=== PATIENT | male | born 1990 | race Caucasian/White ===

== ENCOUNTER 2017-05-01 11:20 | Emergency (ER) | payer SELFPAY ==
[2017-05-01 11:29] VITALS: BP 161/99
--- NOTE | 2017-06-07 22:27 | ED ---
Throat Pain/Nasal Congestion - HPI Summary HPI Summary: Pt here w B/L eye irritation. Not sure but thinks he may still have his contact lenses in place. Reports multiple attempts to remove w/o success. Vision is blurred unless he wears is glasses. Denies headache, fever, chills, neck pain. - History of Current Complaint Chief Complaint: EDEyeProblem Time Seen by Provider: 05/01/17 14:02 Hx Obtained From: Patient - Allergies/Home Medications Allergies/Adverse Reactions: Allergies Allergy/AdvReac Type Severity Reaction Status Date / Time No Known Allergies Allergy Verified 05/01/17 11:26 PMH/Surg Hx/FS Hx/Imm Hx Previously Healthy: Yes Endocrine/Hematology History: Denies: Autoimmune Disease - Immunization History Immunizations Up to Date: Yes Infectious Disease History: No Infectious Disease History: Denies: Hx of Known/Suspected MRSA, Traveled Outside the [place] in Last 30 Days - Social History Occupation: Student Lives: With Family Alcohol Use: None Hx Substance Use: No Substance Use Type: Reports: None Hx Tobacco Use: Yes Smoking Status (MU): Current Every Day Smoker Review of Systems Constitutional: Negative Negative: Fever, Chills, Fatigue Positive: Blurred Vision - see HPI, Erythema. Negative: Photophobia, Diplopia, Drainage ENT: Negative Cardiovascular: Negative Respiratory: Negative Gastrointestinal: Negative Negative: Vomiting, Nausea Positive: no symptoms reported Musculoskeletal: Negative Skin: Negative Neurological: Negative Psychological: Normal All Other Systems Reviewed And Are Negative: Yes Physical Exam Triage Information Reviewed: Yes Vital Signs On Initial Exam: Initial Vitals Temp Pulse Resp BP Pulse Ox 99.2 F 67 16 161/99 99 05/01/17 11:26 05/01/17 11:26 05/01/17 11:26 05/01/17 11:26 05/01/17 11:26 Vital Signs Reviewed: Yes Appearance: Positive: Well-Appearing, No Pain Distress, Well-Nourished Skin: Positive: Warm, Dry Head/Face: Positive: Normal Head/Face Inspection Eyes: Positive: EOMI, KONRAD - no photosensitivity, Conjunctiva Inflammed - mild erythema B/L, Discharge - watery at times, mild, Other: - no FB observed, no abrasions, no lesions, no hemorrhage; pt's vision is intact w/ glasses in place ENT: Positive: Hearing grossly normal Neck: Positive: Supple, Nontender Respiratory/Lung Sounds: Positive: Breath Sounds Present Musculoskeletal: Positive: Normal, Strength/ROM Intact Neurological: Positive: Normal, Sensory/Motor Intact, Alert, Oriented to Person Place, Time, CN Intact II-III Psychiatric: Positive: Anxious Procedures - Procedure Summary Procedure Summary: B/L eye exam clear of FB's - no mary abrasions. Diagnostics - Vital Signs Vital Signs Temp Pulse Resp BP Pulse Ox 05/01/17 11:26 99.2 F 67 16 161/99 99 - Laboratory Lab Statement: Any lab studies that have been ordered have been reviewed, and results considered in the medical decision making process. EENT Course/Dx - Course Course Of Treatment: Pt appears to have irritated his eyes by wearing contacts longer than advised by jerri followed by continuously manipulating them to remove contact lenses. No contact lenses observed on examination. Advised multiple saline eye washes per day to reduce irritatio and inflammation and avoid use of contact lenses until eyes improve completely. If he has persistent sx, advise f/u w/ ophthomologist or return to ED. Pt agrees w/ plan. - Diagnoses Provider Diagnoses: Eye irritation Discharge - Discharge Plan Condition: Stable Disposition: HOME Patient Education Materials: Eye Pain (ED) Referrals: Non Staff,Doctor [Primary Care Provider] - Additional Instructions: You appear to have irritation of your eyes from wearing contacts too long and manipulating your eyes to remove them. It is encouraged that you wear your glasses only for 1 week to allow your eyes to rest and heal. You may use saline eye wash throughout the day to provide relief and aid in healing. *If you develop redness, swelling, purulent drainage, change in vision or facial swelling, fever, chills, pain with eye movements or light sensitivity, return to ED
== END 2017-05-01 16:02 | disposition home or self-care (01) ==
LOC: ED 11:20
DX: H57.8 Other specified disorders of eye and adnexa (principal); H53.8 Other visual disturbances
CPT/HCPCS: 99281